=== PATIENT | female | born 1985 | race Caucasian/White ===

== ENCOUNTER 2025-08-22 19:28 | Emergency (ER) | payer BC, SELFPAY ==
[2025-08-22 19:30] VITALS: BP 138/98
[2025-08-22 19:50] VITALS: BP 148/90
[2025-08-22 19:51] LABS: Urine Character Clear (Clear)
[2025-08-22 20:00] VITALS: BP 155/86
[2025-08-22 20:29] VITALS: BMI 36.3
[2025-08-22 21:04] LABS: Hematocrit 43.0 % (37.0-47.0); Hemoglobin 14.4 g/dL (12.0-16.0); Mean Corp Hgb Conc. 33.5 g/dL (33.0-37.0); Mean Corpuscular Volume 86.2 fL (81.0-99.0); Nucleated Red Blood Cells % 0 %; Platelet Count 210 10^3/uL (130-400); Red Cell Dist. Width 13.9 % (11.5-14.5)
[2025-08-22] MEDS: TYLENOL 1000 MG PO (21:12)
[2025-08-22 21:13] LABS: ALT (SGPT) 217 U/L (0-35); AST (SGOT) 278 U/L (14-36); Albumin 4.5 g/dl (3.5-5.0); Alkaline Phosphatase 46 U/L (38-126); Blood Urea Nitrogen 6 mg/dl (7-17); Calcium 8.9 mg/dl (8.4-10.2); Carbon Dioxide 21 mmol/L (22-30); Chloride 102 mmol/L (98-107); Estimated Creatinine Clearance > 125 ml/min; Glucose 113 mg/dl (70-99); Potassium 4.1 mmol/L (3.5-5.1); Sodium 131 mmol/L (135-145); Total Protein 7.5 g/dl (6.3-8.2); eGFR > 60.00
[2025-08-22] MEDS: NSS 1000 IV ×2 (21:14→22:54)
[2025-08-22] MEDS: REGLAN 10 MG IV (21:14)
[2025-08-22] MEDS: TORADOL 15 MG IV (21:14)
[2025-08-22 21:26] LABS: HCG, Serum Qualitative Screen Negative
[2025-08-22 22:36] LABS: D-Dimer 3.75 ug/mlFEU (0.00-0.50)
[2025-08-22 22:50] LABS: Troponin I < 0.012 ng/ml
--- NOTE | 2025-08-22 22:50 | ED.GENMED ---
History of Present Illness
<Micheal Jef DO Colin - Last Filed: 08/22/25 22:52>
General
Chief Complaint: Cold/Flu/URI Symptoms
Time Seen by Provider: 08/22/25 20:11
<Chandrakant Saucedo Jr., PA-C - Last Filed: 08/24/25 02:22>
General
Source: patient
Exam Limitations: none
Nursing documentation reviewed up to this point in time: agreed with
History of Present Illness
History of Present Illness:
Patient is a 40-year-old female presenting to the emergency department today with concerns of bodyaches fevers chills some burning with urination starting yesterday ongoing today went to urgent care earlier today had a urinalysis COVID and flu test
without abnormalities. Chest x-ray also normal. Patient also claims that she was recently admitted to [facility] where she had some redness of her finger she was treated for potential infection but then deemed to be left more likely to be
an autoimmune disorder and treated with a steroid. She was Dosepak. Not currently on steroids at this time. Denies any known sick contacts no upper respiratory symptoms no vomiting or diarrhea. No significant chest pain or shortness of breath.
No history of blood clots recent trauma or surgeries. Not on estrogen products. Non-smoker.
Review of Systems
<Chandrakant Saucedo Jr., PA-C - Last Filed: 08/24/25 02:22>
Review of Systems
Allergies reviewed?: Yes
All Other Systems: ROS reviewed and negative except as documented in HPI and ROS
Phy Exam
<Chandrakant Saucedo Jr., PA-C - Last Filed: 08/24/25 02:22>
Physical Exam
Physical Exam:
GENERAL: Alert , in no apparent distress
EYE: pupils equal and reactive
NECK: Supple, no significant adenopathy.
ENT: o/p clr, mmm.
CARDIAC: Regular rate and rhythm .
LUNGS: Clear breath sounds bilaterally, no acute respiratory distress, no wheezes/rales/rhonchi
ABDOMEN: Soft, without focal tenderness, no r/g, no cvat
NEUROLOGICAL: Alert and oriented, no focal neuro deficits
SKIN: Warm and dry, skin intact.
MUSCULOSKELETAL: No edema, well perfused.
PSYCH: Normal and appropriate interaction.
Course
<Micheal Shaw, DO - Last Filed: 08/22/25 22:52>
Orders/Labs/Results
Orders:
Orders
08/22/25 19:36
EKG [Electrocardiogram (*1)] Urgent
Reason for Study: Tachycardia
EKG- Treatment ONCE
08/22/25 19:46
Urinalysis Reflex To Culture Urgent
Date Specimen was Collected: 08/22/25
Time Specimen was Collected: 19:42
08/22/25 20:47
CMP [Comprehensive Metabolic Panel] Urgent
Complete Blood Count/With Diff Urgent
HCG, Serum Qualitative Screen Urgent
Comment: ADD ON
Lactic Acid Urgent
Monotest Urgent
Comment: ADD ON
08/22/25 21:08
0.9% Sodium Chloride 1000 ml [Nss] 1,000 ml IV BOLUS
Acetaminophen [Tylenol] 1,000 mg PO NOW STA
Ketorolac [Toradol] 15 mg IV NOW STA
Metoclopramide [Reglan] 10 mg IV NOW STA
08/22/25 21:09
Add On- LAB Urgent
Tests Added?: hcg serum qual
08/22/25 22:13
EKG [Electrocardiogram (*1)] Urgent
Reason for Study: Bradycardia / Tachycardia
EKG- Treatment ONCE
08/22/25 22:16
D-Dimer Urgent
Troponin I Urgent
08/22/25 22:44
Add On- LAB Urgent
Tests Added?: monotest
CT Chest PE Study Urgent
Comment:
Reason For Exam: elevated dimer
08/22/25 22:49
0.9% Sodium Chloride 1000 ml [Nss] 1,000 ml IV BOLUS
08/22/25 22:56
Blood Culture Q30M
MARGARETTE Source: Blood/Venous
Specimen Description:
08/22/25 23:02
Blood Culture Q30M
MARGARETTE Source: Blood/Venous
Specimen Description:
Abnormal Lab Results
08/22/25 08/22/25
20:47 22:16
WBC 3.6 L 10^3/uL
(4.8-10.8)
Absolute Lymphs (auto) 0.7 L 10^3/uL
(1.2-3.4)
Immature Gran % 1.1 H %
(0-0.5)
Lymphocytes % 19.6 L %
(20.5-51.1)
Monocytes % 9.4 H %
(1.7-9.3)
D-Dimer 3.75 H ug/mlFEU
(0.00-0.50)
Sodium 131 L mmol/L
(135-145)
Carbon Dioxide 21 L mmol/L
(22-30)
BUN 6 L mg/dl
(7-17)
Creatinine 0.5 L mg/dL
(0.6-1.0)
Glucose 113 H mg/dl
(70-99)
Total Bilirubin 1.5 H mg/dl
(0.2-1.3)
AST 278 H U/L
(14-36)
ALT 217 H U/L
(0-35)
08/22/25 20:47
08/22/25 20:47
Vital Signs
Initial and Last Documented VS:
Initial Vital Signs
Temp Pulse Resp BP Pulse Ox
99 F 129 20 138/98 98
08/22/25 19:30 08/22/25 19:30 08/22/25 19:30 08/22/25 19:30 08/22/25 19:30
Last Documented Vital Signs
Temp Pulse Resp BP Pulse Ox
98.6 F 93 23 116/60 93
08/23/25 01:02 08/23/25 00:30 08/23/25 00:30 08/23/25 00:00 08/23/25 00:30
<Chandrakant Saucedo Jr., MIRTHA-Marcia - Last Filed: 08/24/25 02:22>
Orders/Labs/Results
Orders:
Orders
08/22/25 19:36
EKG [Electrocardiogram (*1)] Urgent
Reason for Study: Tachycardia
EKG- Treatment ONCE
08/22/25 19:46
Urinalysis Reflex To Culture Urgent
Date Specimen was Collected: 08/22/25
Time Specimen was Collected: 19:42
08/22/25 20:47
CMP [Comprehensive Metabolic Panel] Urgent
Complete Blood Count/With Diff Urgent
HCG, Serum Qualitative Screen Urgent
Comment: ADD ON
Lactic Acid Urgent
Monotest Urgent
Comment: ADD ON
08/22/25 21:08
0.9% Sodium Chloride 1000 ml [Nss] 1,000 ml IV BOLUS
Acetaminophen [Tylenol] 1,000 mg PO NOW STA
Ketorolac [Toradol] 15 mg IV NOW STA
Metoclopramide [Reglan] 10 mg IV NOW STA
08/22/25 21:09
Add On- LAB Urgent
Tests Added?: hcg serum qual
08/22/25 22:13
EKG [Electrocardiogram (*1)] Urgent
Reason for Study: Bradycardia / Tachycardia
EKG- Treatment ONCE
08/22/25 22:16
D-Dimer Urgent
Troponin I Urgent
08/22/25 22:44
Add On- LAB Urgent
Tests Added?: monotest
CT Chest PE Study Urgent
Comment:
Reason For Exam: elevated dimer
08/22/25 22:49
0.9% Sodium Chloride 1000 ml [Nss] 1,000 ml IV BOLUS
08/22/25 22:56
Blood Culture Q30M
MARGARETTE Source: Blood/Venous
Specimen Description:
08/22/25 23:02
Blood Culture Q30M
MARGARETTE Source: Blood/Venous
Specimen Description:
Abnormal Lab Results
08/22/25 08/22/25
20:47 22:16
WBC 3.6 L 10^3/uL
(4.8-10.8)
Absolute Lymphs (auto) 0.7 L 10^3/uL
(1.2-3.4)
Immature Gran % 1.1 H %
(0-0.5)
Lymphocytes % 19.6 L %
(20.5-51.1)
Monocytes % 9.4 H %
(1.7-9.3)
D-Dimer 3.75 H ug/mlFEU
(0.00-0.50)
Sodium 131 L mmol/L
(135-145)
Carbon Dioxide 21 L mmol/L
(22-30)
BUN 6 L mg/dl
(7-17)
Creatinine 0.5 L mg/dL
(0.6-1.0)
Glucose 113 H mg/dl
(70-99)
Total Bilirubin 1.5 H mg/dl
(0.2-1.3)
AST 278 H U/L
(14-36)
ALT 217 H U/L
(0-35)
08/22/25 20:47
08/22/25 20:47
Vital Signs
Initial and Last Documented VS:
Initial Vital Signs
Temp Pulse Resp BP Pulse Ox
99 F 129 20 138/98 98
08/22/25 19:30 08/22/25 19:30 08/22/25 19:30 08/22/25 19:30 08/22/25 19:30
Last Documented Vital Signs
Temp Pulse Resp BP Pulse Ox
98.6 F 93 23 116/60 93
08/23/25 01:02 08/23/25 00:30 08/23/25 00:30 08/23/25 00:00 08/23/25 00:30
<Mary Maxwell PA-C - Last Filed: 08/23/25 16:15>
Orders/Labs/Results
Orders:
Orders
08/22/25 19:36
EKG [Electrocardiogram (*1)] Urgent
Reason for Study: Tachycardia
EKG- Treatment ONCE
08/22/25 19:46
Urinalysis Reflex To Culture Urgent
Date Specimen was Collected: 08/22/25
Time Specimen was Collected: 19:42
08/22/25 20:47
CMP [Comprehensive Metabolic Panel] Urgent
Complete Blood Count/With Diff Urgent
HCG, Serum Qualitative Screen Urgent
Comment: ADD ON
Lactic Acid Urgent
Monotest Urgent
Comment: ADD ON
08/22/25 21:08
0.9% Sodium Chloride 1000 ml [Nss] 1,000 ml IV BOLUS
Acetaminophen [Tylenol] 1,000 mg PO NOW STA
Ketorolac [Toradol] 15 mg IV NOW STA
Metoclopramide [Reglan] 10 mg IV NOW STA
08/22/25 21:09
Add On- LAB Urgent
Tests Added?: hcg serum qual
08/22/25 22:13
EKG [Electrocardiogram (*1)] Urgent
Reason for Study: Bradycardia / Tachycardia
EKG- Treatment ONCE
08/22/25 22:16
D-Dimer Urgent
Troponin I Urgent
08/22/25 22:44
Add On- LAB Urgent
Tests Added?: monotest
CT Chest PE Study Urgent
Comment:
Reason For Exam: elevated dimer
08/22/25 22:49
0.9% Sodium Chloride 1000 ml [Nss] 1,000 ml IV BOLUS
08/22/25 22:56
Blood Culture Q30M
MARGARETTE Source: Blood/Venous
Specimen Description:
08/22/25 23:02
Blood Culture Q30M
MARGARETTE Source: Blood/Venous
Specimen Description:
Abnormal Lab Results
08/22/25 08/22/25
20:47 22:16
WBC 3.6 L 10^3/uL
(4.8-10.8)
Absolute Lymphs (auto) 0.7 L 10^3/uL
(1.2-3.4)
Immature Gran % 1.1 H %
(0-0.5)
Lymphocytes % 19.6 L %
(20.5-51.1)
Monocytes % 9.4 H %
(1.7-9.3)
D-Dimer 3.75 H ug/mlFEU
(0.00-0.50)
Sodium 131 L mmol/L
(135-145)
Carbon Dioxide 21 L mmol/L
(22-30)
BUN 6 L mg/dl
(7-17)
Creatinine 0.5 L mg/dL
(0.6-1.0)
Glucose 113 H mg/dl
(70-99)
Total Bilirubin 1.5 H mg/dl
(0.2-1.3)
AST 278 H U/L
(14-36)
ALT 217 H U/L
(0-35)
08/22/25 20:47
08/22/25 20:47
Vital Signs
Initial and Last Documented VS:
Initial Vital Signs
Temp Pulse Resp BP Pulse Ox
99 F 129 20 138/98 98
08/22/25 19:30 08/22/25 19:30 08/22/25 19:30 08/22/25 19:30 08/22/25 19:30
Last Documented Vital Signs
Temp Pulse Resp BP Pulse Ox
98.6 F 93 23 116/60 93
08/23/25 01:02 08/23/25 00:30 08/23/25 00:30 08/23/25 00:00 08/23/25 00:30
<Chandrakant Saucedo Jr., PA-C - Last Filed: 08/24/25 02:22>
MDM/Problems Addressed
MDM/Problems Addressed:
40-year-old female presenting with concerns of bodyaches fevers chills mild headache starting yesterday. Febrile on arrival tachycardic to. Denies any specific symptoms other than body aches and vague generalized weakness fatigue. Labs showing
slightly low sodium level elevated liver function test and slightly elevated bilirubin but no abdominal pain. Urinalysis without signs of infection. No specific symptom with upper respiratory syndrome D-dimer was obtained concerning patient's
persistent tachycardia despite receiving antipyretics and pain medication. D-dimer was significantly elevated CT PE ordered. Troponin negative. EKG without specific findings.
<Micheal Shaw DO - Last Filed: 08/22/25 22:52>
*Pulse Oximetry
SaO2: 93
Oxygen Mode of Delivery: Room air
<Mary Maxwell PA-C - Last Filed: 08/23/25 16:15>
*Pulse Oximetry
Patient hypoxic: no
*Critical Care Note
Total Time (30-74mins, 75-104mins- exclusive of procedures): Not Applicable
<Mary Maxwell PA-C - Last Filed: 08/23/25 16:15>
Update Note
Update Note:
Update 12:40 AM: Assumed care of patient in signout. CT PE study without evidence of pulmonary embolism or other acute abnormalities in the chest. I did reassess patient at bedside. Her vital signs seem to normalize. She says she feels 'so much
better' than when she arrived. I did perform a walking pulse ox that any desaturation that she remained around 95% on room air. She did become mildly tachycardic, however felt well.
Possible viral etiology, however blood cultures are pending. Her fever is resolved.
Lengthy discussion with patient regarding admission for continued observation was discharged home. Patient prefers discharge home at this time. Given improvement in symptoms and negative workup�feel this is an appropriate option. Very strict
return precautions discussed. Patient verbalized understanding
ED Attending Note
<Micheal Shaw DO - Last Filed: 08/22/25 22:52>
ED Attending Note
Patient seen and examined by attending physician: Yes
I performed the substantive portion of visit, reviewed & personally made and approve the management plan that is documented in note by myself or ROSARIO.: Yes
ED Attending Note:
I evaluated the patient at bedside. Mild leukopenia noted, transaminase elevation noted but no significant abdominal pain she reportedly was tachypneic in triage, D-dimer was obtained and was elevated and her room air sats are 92%, we will plan
CTA, however the patient denies any shortness of breath. We discussed the possibly of a viral syndrome. Lactic acid normal, will obtain blood cultures as well as patient was recently on IV antibiotics for finger infection and steroids. I hear no
murmur on examination to suggest endocarditis and she has no endocarditis risk factors.
-
Portions of this chart may have been created with voice recognition software.� Occasional wrong word or��sound alike� substitutions may have occurred due to the inherent limitations of voice recognition software.
Discharge Plan
Departure
Patient Disposition: Home (Routine Discharge)
Date of Disposition: 08/23/25
Time of Disposition: 00:45
Patient with high blood pressure during this ER visit?: Yes
Condition: Good
Covid-19: Negative COVID-19
Discharge Problem:
Fever, Tachycardia
Instructions: Fever, Adult (DC), Viral Syndrome (DC), BLOOD PRESSURE
Referrals:
Jef Clarke MD [Family Provider, Internal Medicine] - Follow up in 2-3 days
Activity Restrictions/Additional Instructions:
RETURN TO THE EMERGENCY DEPARTMENT WITH ANY PERSISTENTLY ELEVATED FEVER, SEVERE HEADACHE OR NECK PAIN, CHEST PAIN OR SHORTNESS OF BREATH, SEVERE ABDOMINAL PAIN, WORSENING IN CURRENT SYMPTOMS, OR ANY OTHER CONCERNS
- As discussed�it is possible that your symptoms are due to a viral illness. Please continue to treat symptoms supportively at home with Tylenol/Motrin as needed for pain. Please stay well-hydrated. Get plenty of rest.
- The CT scan of your chest showed no acute abnormalities or evidence of blood clot. Your liver function test were elevated while in the emergency department. This may be due to a viral illness however you should have these labs repeated with your
primary care to ensure stable/trending down
- Please follow-up with your primary care doctor in a few days for further evaluation/management and to ensure that your symptoms are improving
Monitor your symptoms closely and return to the emergency department with any acute worsening/new symptoms or any other concerns
Interventions
Interventions:
*Risk Screen - Suicide Last Done: 08/22/25 19:30
*General Assessment Last Done: 08/22/25 20:30
*Neglect/Abuse Screening Last Done: 08/22/25 19:30
*ED- Fall Risk Assessment Last Done: 08/22/25 20:30
*ED COVID-19 Vaccine History Last Done: 08/22/25 20:30
*ED Influenza Vaccine History Last Done: 08/22/25 20:30
*Nursing Disposition Last Done: 08/23/25 01:02
ED- Pulmonary Assessment Last Done: 08/22/25 20:30
Discharge Date and Time
Discharge Date/Time: 08/23/25 01:03
Print Language: ANGOLAN
[2025-08-22 23:04] VITALS: BP 136/73
[2025-08-22 23:46] VITALS: BP 119/59
[2025-08-23] VITALS: BP 116/60
== END 2025-08-23 01:03 | disposition home or self-care (01) ==
LOC: EMR 19:28
PROVIDERS: Physician Assistant; EMERGENCY PHYSICIAN Emergency Medicine; FAMILY PHYSICIAN Internal Medicine
DX: R50.9 Fever, unspecified (principal); R00.0 Tachycardia, unspecified; D72.819 Decreased white blood cell count, unspecified; E87.1 Hypo-osmolality and hyponatremia; R79.89 Other specified abnormal findings of blood chemistry
CPT/HCPCS: 96374; 96375; 96361; 99284; 71275; 80053; 81003; 83605; 84484; 84703; 85025; 85379; 86308; 87040; 93005; Q9967